=== PATIENT | female | born 1990 | race Caucasian/White ===

== ENCOUNTER → 2020-11-10 09:51 | Outpatient (CLI) | payer OTHER, SELFPAY ==
--- NOTE | ~2020-11-10 | US_ITS ---
EXAMINATION: US OB >= 14 weeks Fetus EXAM DATE: 11/10/2020 10:34 INDICATION: OB anatomy screen . 2nd trimester. TECHNIQUE: Pelvic obstetrical transabdominal sonogram was performed by a technologist. There are mu ltiple grayscale and Doppler images available for interpretation. There are no earlier studies of th is gestation for comparison. FINDINGS: There is a single fetus identified in vertex presentation with a heart rate of 145 beats pe r minute. The placenta is located in the posterior position. There is no sonographic evidence of ret roplacental hemorrhage identified. There is subjectively expected amount of amniotic fluid. Placenta l margin to internal cervical os distance is 3.8 cm. BIOMETRIC DATA: Biparietal diameter (BPD): 3.9 cm ----------------> 17 weeks 6 days. Head circumference (HC): 14.2 cm ----------------> 17 weeks 3 days. Abdominal circumference (AC): 12.5 cm ----------> 18 weeks 1 day. Femur length (FL): 2.3 cm --------------------------> 16 weeks 6 days. These measurements are concordant. HC/AC ratio is 1.13 (The 5th -- 95th percentile range is 1.08-1.28. Estimated weight is 198 g +/- 30 g. This is the 19th percentile when the currently reported cl inical gestation age 18 weeks 0 days, clinical estimated date of delivery (ANIL-OPE) 04/13 is used. Fet al estimated gestational age based on measurements from this exam is 17 weeks 4 days, with an estimat ed date of delivery (ANIL-AUA) 04/16. IMPRESSION: 1. Single fetus in vertex presentation with heart rate 145 beats per minute. 2. Estimated weight of 198 grams, 19th percentile using the currently reported clinical gestat ion age of 18 weeks 0 days, ANIL(OPE) /. 3. Normal anatomic survey. Reviewed, dictated and finalized at location B. IMPRESSION: 1. Single fetus in vertex presentation with heart rate 145 beats per minute. 2. Estimated weight of 198 grams, 19th percentile using the currently re ported clinical gestation age of 18 weeks 0 days, ANIL(OPE) 04/13. 3. Normal anatomic survey.
== END ==
PROVIDERS: Visit Provider Obstetrics & Gynecology
DX: Z36.9 Encounter for antenatal screening, unspecified (principal); Z3A.18 18 weeks gestation of pregnancy
CPT/HCPCS: 76805

== ENCOUNTER 2021-02-18 09:43 | Outpatient (CLI) | payer OTHER, SELFPAY ==
--- NOTE | ~2021-02-18 | US_ITS ---
EXAMINATION: US OB follow up DATE: 02/18/2021 10:23 INDICATION: Size greater than dates during third trimester TECHNIQUE: Real-time ultrasound of the pelvis was performed. The interpreting radiologist was not pre sent for the study. COMPARISON: None. FINDINGS: There is a single living fetus in vertex presentation. The placenta is posterior/fundal. Fe curtis cardiac activity and movement are noted. heart rate is 132 beats per minute (bpm). Th e amniotic fluid index is 15.7 cm which is normal. The following biometric data were obtained: Biparietal diameter (BPD): 8.1 cm; head circumference (HC): 29.8 cm; abdominal circumference (AC): 26 .5 cm; femur length (FL): 5.8 cm. These measurements are concordant. Estimated weight is 1669 g +/- 250 g, which correlates with the 9th percentile when 04/13/2021 i s used as estimated date of delivery. As single measurements, these parameters are each equal to the following estimated gestational ages w ith ranges of +/- 2 standard deviations: BPD: 32 weeks 3 days ( 29 weeks 3 days - 35 weeks 4 days). HC: 33 weeks 0 days ( 30 weeks 0 days - 36 weeks 0 days). AC: 30 weeks 5 days ( 27 weeks 5 days - 33 weeks 4 days). FL: 30 weeks 3 days ( 27 weeks 3 days - 33 weeks 2 days). estimated gestational age based solely on measurements from this exam is 31 weeks 5 days +/- 2 weeks 2 days. IMPRESSION: 1. Single living fetus in vertex presentation. 2. Estimated weight is 1669 g +/- 250 g, which correlates with the 9th percentile when 1 is used as estimated date of delivery. 3. Normal amniotic fluid index. Reviewed, dictated and finalized at location B. IMPRESSION: 1. Single living fetus in vertex presentation. 2. Estimated weight is 1669 g +/- 250 g, which correlates with the 9th pe rcentile when 04/13/2021 is used as estimated date of delivery. 3. Normal amniotic fluid index.
== END 2021-02-18 09:44 ==
LOC: MICIMG 09:44
PROVIDERS: Visit Provider Obstetrics & Gynecology
DX: O36.63X0 Maternal care for excessive fetal growth, third trimester, not applicable or unspecified (principal); Z3A.31 31 weeks gestation of pregnancy
CPT/HCPCS: 76816

== ENCOUNTER 2021-04-12 04:43 | Inpatient (IN) | payer OTHER, SELFPAY ==
[2021-04-12] VITALS (124 sets, daily range): BP systolic 91–152; BP diastolic 53–122; PULSE 68–148; RESP 18; TEMP 36.2–36.9; O2SAT 95–100; BMI 40.3
--- NOTE | 2021-04-12 04:43 | LDADM ---
This patient, Gigi Bowden, was admitted to Labor/Delivery/Recovery 104 on 04/12/21 at 04:43. Plans for labor, pain management and were discussed with patient. Patient/family oriented to hospital policies and general routines including ID bracelet, bed and alarms, visiting hours, pain management, procedures, bathroom and other care routines, personal items, smoking policy, room service/diet and guest tray routines, infant security routines, and visiting hours. Patient/Family are encouraged to report perceived risks to care and to ask questions if they do not understand what they are told or what they should do. See OBIX for further documentation.
[2021-04-12] MEDS: OXYTOCIN 30 UNITS/NS 500 ML 30 UNITS/500 ML BAG IV CONT (05:44)
[2021-04-12] MEDS: LACTATED RINGERS 1,000 ML 125 ML IV CONT ×4 (05:44→12:26)
[2021-04-12] MEDS: AMPICILLIN 2 GM/NS 100 ML 2 GM/100 ML BAG IVPB (05:44)
[2021-04-12 05:45] LABS: Basophils Absolute Auto 0.1 K/mm3 (0.0-0.1); Basophils Percent Auto 0.6 % (0.2-1.2); Eosinophils Absolute Auto 0.4 K/mm3 (0-0.3); Eosinophils Percent Auto 2.9 % (0-4.4); Hematocrit 32.4 % (37.0-47.0); Hemoglobin 10.6 g/dL (12.0-15.0); Immature Granulocyte Absolute 0.07 K/mm3 (0.00-0.031); Immature Granulocyte Percent A 0.6 % (0-0.5); Lymphocytes Absolute Auto 3.53 K/mm3 (0.9-3.2); Lymphocytes Percent Auto 29.7 % (18.3-44.2); Mean Corpuscular HGB Conc 32.7 g/dl (32-36); Mean Corpuscular Hemoglobin 29.3 pg (26-34); Mean Corpuscular Volume 89.5 fl (80-100); Mean Platelet Volume 10.8 fl (7.4-10.4); Monocytes Absolute Auto 0.9 K/mm3 (0.1-0.6); Monocytes Percent Auto 7.6 % (2.6-8.5); Neutrophils Percent Auto 58.6 % (45.5-73.1); Platelet Count Result 316 k/mm3 (150-375); Red Blood Count 3.62 M/mm3 (4.2-5.4); Red Cell Distribution Width 14.4 % (11.5-14.5); White Blood Count 11.9 K/mm3 (4.5-10.0)
--- NOTE | 2021-04-12 07:52 | WPDOBADMIT ---
Obstetrics - Admit Note Admission Note: AROM clear fluid 3-/-2. record reviewed. No pertinent additions to the history and/or any subsequent changes in the physical findings that are not consistent with the expected course of the were found. Additions to the history and/or subsequent changes in the physical findings follow. None.
[2021-04-12 09:14] LABS: Amphetamine Screen Urine Negative (Negative); Barbiturate Screen Urine Negative (Negative); Benzodiazepines Screen Urine Negative (Negative); Cannabinoid Screen Urine Negative (Negative); Cocaine Screen Urine Negative (Negative); Methadone Screen Urine Negative (Negative); Opiate Screen Urine Negative (Negative); Phencyclidine Screen Urine Negative (Negative)
[2021-04-12] MEDS: AMPICILLIN 1 GM/NS 50 ML 1 GM/50 ML BAG IVPB ×2 (09:16→13:02)
[2021-04-12 11:03] LABS: Rapid Plasma Reagin Non-Reactive (NonReactive)
--- NOTE | 2021-04-12 11:46 | WPDANESEPP ---
Anes - Eval Pre Procedure Procedure: LABOR EPIDURAL Date/Time: 04/12/21 11:46 Surgeon: MAXIMILIAN Preop Diagnosis: LABOR PAIN Pre Op Diagnosis: IOL Patient Data Age: 30 Gender: F Height: 1.7 m Weight: 116.8 kg Last Vital Signs Temp 36.4 C 04/12/21 09:30 Pulse 107 H 04/12/21 11:44 Resp 18 04/12/21 05:57 BP 129/66 04/12/21 11:44 Pulse Ox 99 04/12/21 11:44 Allergies Allergy/AdvReac Type Severity Reaction Status Date / Time No Known Allergies Allergy Unknown Verified 01/27/18 15:40 Home Medications Medication Instructions Recorded Confirmed Type PNV cmb#95-ferrous fumarate-FA 1 tablet PO DAILY 03/14/21 04/12/21 History [] Laboratory Tests 04/12/21 04/12/21 04/12/21 05:35 05:35 05:35 WBC 11.9 K/mm3 H K/mm3 (4.5-10.0) RBC 3.62 M/mm3 L M/mm3 (4.2-5.4) Hgb 10.6 g/dL L g/dL (12.0-15.0) Hct 32.4 % L % (37.0-47.0) MCV 89.5 fl fl (80-100) MCH 29.3 pg pg (26-34) MCHC 32.7 g/dl g/dl (32-36) RDW 14.4 % % (11.5-14.5) Plt Count 316 k/mm3 k/mm3 (150-375) MPV 10.8 fl H fl (7.4-10.4) Immature Gran % (Auto) 0.6 % H % (0-0.5) Neut % (Auto) 58.6 % % (45.5-73.1) Lymph % (Auto) 29.7 % % (18.3-44.2) [place] % (Auto) 7.6 % % (2.6-8.5) Eos % (Auto) 2.9 % % (0-4.4) Baso % (Auto) 0.6 % % (0.2-1.2) Lymph # (Auto) 3.53 K/mm3 H K/mm3 (0.9-3.2) [place] # (Auto) 0.9 K/mm3 H K/mm3 (0.1-0.6) Eos # (Auto) 0.4 K/mm3 H K/mm3 (0-0.3) Baso # (Auto) 0.1 K/mm3 K/mm3 (0.0-0.1) Abs Immat Gran (auto) 0.07 K/mm3 H K/mm3 (0.00-0.031) Absolute Neuts (auto) 7.0 K/mm3 H K/mm3 (1.3-6.7) Absolute Nucleated RBC 0.0 K/mm3 K/mm3 (0.0-0.012) Nucleated RBC % 0.0 % % (0.0-0.2) Urine Opiates Screen Urine Methadone Screen Ur Barbiturates Screen Ur Phencyclidine Scrn Ur Amphetamine Screen U Benzodiazepines Scrn Urine Cocaine Screen U Cannabinoids Screen RPR Non-reactive (NonReactive) Blood Type B Positive Antibody Screen Negative 04/12/21 08:22 WBC RBC Hgb Hct MCV MCH MCHC RDW Plt Count MPV Immature Gran % (Auto) Neut % (Auto) Lymph % (Auto) [place] % (Auto) Eos % (Auto) Baso % (Auto) Lymph # (Auto) [place] # (Auto) Eos # (Auto) Baso # (Auto) Abs Immat Gran (auto) Absolute Neuts (auto) Absolute Nucleated RBC Nucleated RBC % Urine Opiates Screen Negative (Negative) Urine Methadone Screen Negative (Negative) Ur Barbiturates Screen Negative (Negative) Ur Phencyclidine Scrn Negative (Negative) Ur Amphetamine Screen Negative (Negative) U Benzodiazepines Scrn Negative (Negative) Urine Cocaine Screen Negative (Negative) U Cannabinoids Screen Negative (Negative) RPR Blood Type Antibody Screen Patient hx anesthesia problems: none Family hx anesthesia problems: none Results Review: All pre-operative results and documents have been reviewed as part of the pre-operative evaluation. [facility] Family History Family History Other No pertinent family history Social History Social History Smoking status: Former smoker Substance use: never Spiritual care concerns: No Exam Day of Procedure 04/12/21 11:46 Patient weight: morbidly obese Heart: tachycardia Lungs: normal air movement Airway: Mallampati scale class II Neurological: alert and oriented
[2021-04-12] MEDS: OXYTOCIN 30 UNITS/NS 500 ML 30 UNITS/500 ML BAG 125 UNITS IV CONT (16:00)
[2021-04-12] MEDS: IBUPROFEN 600 MG TABLET PO (19:40)
[2021-04-13] VITALS (8 sets, daily range): BP systolic 125–142; BP diastolic 69–92; PULSE 77–101; RESP 18; TEMP 36.4–36.7; O2SAT 98–99
[2021-04-13] MEDS: IBUPROFEN 600 MG TABLET PO (04:14)
[2021-04-13 04:26] LABS: Hematocrit 32.5 % (37.0-47.0); Hemoglobin 10.3 g/dL (12.0-15.0)
[2021-04-13] MEDS: MULTIVIT/MIN/PREN/FOL AC/IRON TABLET 1 TAB PO (08:50)
--- NOTE | 2021-04-13 10:43 | PM.OBPNVD ---
OB - PN: Subj Subjective Date/time seen: 04/13/21 10:43 doing well no complaints OB - PN: Obj Data Labs CBC & Chem 7: 04/13/21 04:18 Labs: Laboratory Results - last 24 hr 04/12/21 04/13/21 05:35 04:18 Hgb 10.3 L Hct 32.5 L RPR Non-reactive OB - PN A/P Assessment and Plan (1) (normal spontaneous vaginal delivery): Code(s): O80 - Encounter for full-term uncomplicated delivery Status: Acute Assessment and Plan: continue with pp care Time Spent With Patient Time: Total time spent is greater than 50% in coordination of care (as documented) at patient's floor/unit and/or counseling patient: Exam Narrative: ff below umbilicus
[2021-04-16 08:52] VITALS: BP 134/67; PULSE 97; RESP 20; TEMP 36.9; O2SAT 98
--- NOTE | 2021-05-01 09:58 | PM.OBPRVD ---
OB - Delivery Note Procedure Delivery date: 04/12/21 Procedure: events: Labor Induction Intrapartal events: None Induction method: AROM and per pitocin protocol Delivery monitor: external FHT and external uterine Route of delivery: Laceration Description: Perineal - 2nd Degree Delivery repair: vicryl Quantitative Blood Loss (ml): 110 Anesthesia type: Epidural Disposition: floor [place] Baby Date of : 04/12/21 Time of : 15:07 Weeks of gestation at delivery: 39 Infant gender: Female Weight (pounds): 7 Weight (ounces): 11 presentation: vertex position: Left Occiput Anterior Placenta delivery description: Spontaneous cord vessel description: 3 Vessels score one minute: 9 score five minutes: 9
--- NOTE | 2021-05-01 10:01 | PM.OBDSVD ---
DS: Admitting Diagnosis Discharge Date 04/13/21 Admitting Diagnosis Induction of Labor OB - DS: Summary OB Procedures : None OB Procedures Intrapartum: Spontaneous Vag Delivery OB Procedures: : None Time Spent with Patient Time attestation: Total time spent providing and/or coordinating discharge services: Discharge Plan Discharge Attending physician on discharge: Joshua Aburto Discharging Clinician: Joshua Aburto Patient Disposition: Home, Self-Care Activity: may shower and pelvic rest Diet: regular Discharge Instructions: Education: Mom and Baby Guide Given to: Mother Follow-Up: Call your delivering provider's office for an appointment to be seen in: 4 Weeks Mom and baby should come to the [facility] for the follow-up appointment. Appointment Date/Time: April 16, 2021 at 9:00 am What to expect at your follow-up visit: Physical Assessment Call [phone] if you are unable to keep your appointment time. BREAST CARE: * Wear a snug supportive bra. * For engorgement discomfort: Breast Feeding: * Apply warm moist washcloths * Express milk as needed to relieve engorgement * Wear loose clothing Bottle Feeding: * May apply ice packs * For sore nipples: * Identify correct latch-on * Apply warm moist washcloths before and after nursing * Air dry nipples after nursing * May apply Lansinoh cream to nipples PERINEAL CARE: * Until bleeding stops, use your martinez bottle after urinating * Change your pad frequently throughout the day * You may take sitz baths several times a day (fill your bathtub with warm water and soak for 20 minutes.) Do NOT bathe in the water * No tub baths until seen by your physician - You may shower ACTIVITY: * Rest as much as possible. * Do not exercise or lift anything heavier than your baby (such as laundry or other children.) * Avoid stairs or driving as much as possible. * Do not put anything into the vagina. No douching, tampons, or sexual activity until seen by physician. NOTIFY PHYSICIAN IF YOU HAVE ANY QUESTIONS OR IF ANY OF THE FOLLOWING SYMPTOMS OCCUR: * If your perineum becomes red, swollen, or more painful than what you have experienced in the hospital. * If your vaginal bleeding becomes foul smelling. * If your vaginal bleeding becomes more heavy than a period or if your bleeding changes from pink to bright red. However, you may pass an occasional walnut-sized clot once or twice for the first week . * If you experience a sharp, shooting pain in you calves. * If you discover a hard, reddened area on your breast or if you experience flu-like symptoms. * If you have a fever of 100.4 or greater DIET: * Eat regular, well-balanced meals. * Drink plenty of fluids daily. If , drink to thirst. Patient Instructions: Antibiotic Form Stand Alone Forms: General Discharge Information Follow-up/Referrals: Joshua Aburto MD [Physician] - Discharge Medications: New norethindrone acetate 5 mg tablet 5 mg PO DAILY Qty: 30 RF: 8 Continued PNV cmb#95-ferrous fumarate-FA [] 28 mg iron- 800 mcg Tablet 1 tablet PO DAILY RF: 0 Date of admission: 04/12/21 04:43 Primary Care Provider: PHYSICIAN,CABINET PROFESSIONAL Admitting Provider: Joshua Aburto Attending physician on admission: Joshua Aburto Condition: Stable
== END 2021-04-13 17:20 | disposition home or self-care (01) | DRG 807 ==
LOC: ANHLDR 04:49 → ANHOBPP 19:14
PROVIDERS: Admitting Provider Obstetrics & Gynecology; Visit Provider Obstetrics & Gynecology
DX: O99.214 Obesity complicating childbirth (principal); Z37.0 Single live birth; E66.01 Morbid (severe) obesity due to excess calories; O99.824 Streptococcus B carrier state complicating childbirth; O70.1 Second degree perineal laceration during delivery; Z3A.39 39 weeks gestation of pregnancy
CPT/HCPCS: 36415; 80307; 85014; 85018; 85025; 86592; 86850; 86900; 86901; A9270; J0290; J2590; J2795; J7120

== ENCOUNTER 2024-02-14 21:11 | Emergency (ER) | payer OTHER, SELFPAY ==
[2024-02-14 21:17] VITALS: BP 153/96; PULSE 102; RESP 16; TEMP 36.7; O2SAT 98
--- NOTE | 2024-02-14 23:23 | PC.NURSE ---
eye supplies placed at bedside for edp to use for evaluation.
--- NOTE | 2024-02-15 00:46 | ED.EYEPROB ---
HPI - Eye Problem General Chief complaint: Eye Problems Stated complaint: Possible scratch to R eye Time Seen by Provider: 02/15/24 00:30 Source: patient Mode of arrival: ambulatory Limitations: no limitations History of Present Illness HPI Narrative: This is a 33-year-old female that presents to the emergency department for right eye redness and irritation. Reports she put on her false eyelashes this morning. Is unsure if she may be scratched her eye. Has had irritation and feeling of foreign body. Denies visual changes. Related Data Home Medications Medication Instructions Recorded Confirmed vit no.95-ferrous 1 tablet PO DAILY 03/14/21 04/12/21 fumarate 28 mg-folic acid 800 mcg tablet () Allergies Allergy/AdvReac Type Severity Reaction Status Date / Time No Known Allergies Allergy Unknown Verified 01/27/18 15:40 Review of Systems Review of Systems: CONSTITUTIONAL: Denies fever EYES: Reports redness. Denies visual changes All systems reviewed & are unremarkable except as noted in HPI and below PMFSH Past Medical History Medical History (Updated 02/15/24 @ 00:46 by Caitlin Kingsley PA-C) (normal spontaneous vaginal delivery) Family History Family History Other No pertinent family history Social History Social History Smoking status: Former smoker Substance use: never Spiritual care concerns: No Exam Narrative: GENERAL: Well-appearing, well-nourished, and in no acute distress. HEAD: Normocephalic, atraumatic. EYES: PERRLA and EOMI. Right eye pressure 20, 17 on the left. Conjunctival injection and tearing of the right eye. Positive fluorescein stain uptake with a corneal abrasion noted. Eyelid eversion, no foreign bodies noted. Visual acuity 20/30 left eye, 20/50 right eye EXTREMITIES: Normal range of motion. No edema. SKIN: Warm, dry, no rash. NEURO: No focal deficits. Alert and oriented x3. PSYCH: Normal mood and affect Course Course Emergency Course: Patient agrees with plan of care Vital Signs Vital signs: Vital Signs Temperature 98.1 F 02/14/24 21:17 Pulse Rate 102 H 02/14/24 21:17 Respiratory Rate 16 02/14/24 21:17 Blood Pressure 153/96 H 02/14/24 21:17 Pulse Oximetry 98 02/14/24 21:17 Oxygen Delivery Room Air 02/14/24 21:17 Temperature 98.1 F 02/14/24 21:17 Pulse Rate 102 H 02/14/24 21:17 Respiratory Rate 16 02/14/24 21:17 Blood Pressure 153/96 H 02/14/24 21:17 Pulse Oximetry 98 02/14/24 21:17 Oxygen Delivery Room Air 02/14/24 21:17 MDM - Eye Problem MDM Narrative Medical decision making narrative: Patient presents to the emergency department for right eye irritation. Ongoing since putting on her false eyelashes this morning. Exam consistent with a corneal abrasion. Will be started on topical antibiotics. Instructed to have follow-up with her eye doctor. She was given warnings to return to the ER Differential Diagnosis Differential diagnosis: Likely corneal abrasion, conjunctivitis and subconjunctival hemorrhage Critical Care Time Critical Care Time Critical Care Time: No Discharge Plan Discharge Clinical Impression: Corneal abrasion Qualifiers: Encounter type: initial encounter Laterality: right Qualified Code(s): S05.01XA - Injury of conjunctiva and corneal abrasion without foreign body, right eye, initial encounter Patient Disposition: Home, Self-Care Condition: Stable Instructions: Antibiotic Form, Corneal Abrasion (ED) Additional Instructions: Return to the emergency department if you experience fever, redness and swelling of your eye, visual changes, or any other symptoms that are concerning to you Apply antibiotic ointment as prescribed Follow-up with your eye doctor Prescriptions: New erythromycin 5 mg/gram (0.5 %) ointment 1 randal
[2024-02-15] MEDS: DACRIOSE EYE IRRIGATION 118 ML BOTTLE (01:26)
[2024-02-15] MEDS: FLUORESCEIN SOD 1 MG/STRIP (01:27)
[2024-02-15] MEDS: TETRACAINE HCL 0.5% OPHTH SOLN 4 ML BTL 1 DROP (01:27)
[2024-02-15 02:18] VITALS: BP 117/68; PULSE 68; RESP 16; TEMP 36.6; O2SAT 98
== END 2024-02-15 02:19 | disposition home or self-care (01) ==
PROVIDERS: Emergency Provider Physician Assistant
DX: S05.01XA Injury of conjunctiva and corneal abrasion without foreign body, right eye, initial encounter (principal); Z87.891 Personal history of nicotine dependence; X58.XXXA Exposure to other specified factors, initial encounter
CPT/HCPCS: 99283; A9270

== ENCOUNTER 2024-04-10 08:57 | Emergency (ER) | payer OTHER, SELFPAY ==
[2024-04-10 08:58] VITALS: BP 152/95; PULSE 120; RESP 16; TEMP 36.5; O2SAT 98
[2024-04-10 09:18] VITALS: BP 152/92; PULSE 106; RESP 18; O2SAT 97
--- NOTE | 2024-04-10 10:54 | ED.GENADULT ---
HPI - General Adult General Chief complaint: Skin/Abscess/Foreign Body Stated complaint: spots on my leg that I thought were spider bites Time Seen by Provider: 04/10/24 09:58 History of Present Illness HPI narrative: [age] old female presenting to the emergency department for evaluation for lesions to bilateral lower legs. Patient states they initially started as white dots associated with the hair follicles, a then turned into larger areas erythema. Patient states these started last week. Patient does have some resolving lesions but also his new lesions pain Patient denies any prior history of MRSA exposure, patient works at an office job. Related Data Home Medications Medication Instructions Recorded Confirmed vit no.95-ferrous 1 tablet PO DAILY 03/14/21 04/12/21 fumarate 28 mg-folic acid 800 mcg tablet () Allergies Allergy/AdvReac Type Severity Reaction Status Date / Time No Known Allergies Allergy Unknown Verified 04/10/24 08:58 Review of Systems Review of Systems: All systems reviewed & are unremarkable except as noted in HPI and below PMFSH Past Medical History Medical History (Updated 04/10/24 @ 10:58 by Wild Barrera MD) (normal spontaneous vaginal delivery) Family History Family History Other No pertinent family history Social History Social History Smoking status: Former smoker Substance use: never Spiritual care concerns: No Exam Narrative: APPEARANCE: Well appearing, no pain, no distress, well-nourished. HEAD: normocephalic, atraumatic. EYES: PERRLA/EOMI, conjunctivae clear. NOSE: Normal no drainage EARS:TMS clear with good light reflex. THROAT: Pharynx clear, no exudate. NECK: Supple. No adenopathy, no masses. RESPIRATORY: Airway patent, respirations nonlabored. Clear to auscultation bilaterally, no rales, rhonchi, wheezing. CARDIOVASCULAR: Regular rate and rhythm without murmurs rubs or gallops. ABDOMINAL: Soft, nontender, nondistended, normal bowel sounds MUSCULOSKELETAL: Moves all extremities. Strength/ROM intact, No edema, No calf tenderness. NEURO: Alert. Cranial nerves II through XII intact. Good gait. Good coordination SKIN: 2 areas of resolving folliculitis but possible cellulitis left leg and to new areas the right leg. Course Vital Signs Vital signs: Vital Signs Temperature 97.7 F 04/10/24 08:58 Pulse Rate 120 H 04/10/24 08:58 Respiratory Rate 16 04/10/24 08:58 Blood Pressure 152/95 H 04/10/24 08:58 Pulse Oximetry 98 04/10/24 08:58 Oxygen Delivery Room Air 04/10/24 08:58 Temperature 97.7 F 04/10/24 08:58 Pulse Rate 90 04/10/24 11:08 Respiratory Rate 20 04/10/24 11:08 Blood Pressure 139/79 04/10/24 11:08 Pulse Oximetry 100 04/10/24 11:08 Oxygen Delivery Room Air 04/10/24 09:18 Medical Decision Making MDM Narrative Medical decision making narrative: [age] old female presented emergency department for evaluation for wounds on her legs. Wounds do consistent with folliculitis and cellulitis. Patient is being started on doxycycline the emergency department. Patient was advised to have follow-up with her primary care physician for a wound check. Differential Diagnosis Differential Diagnosis: Cellulitis, MRSA, impetigo, follicular Vital Signs Vital Signs: Vital Signs Temperature 97.7 F 04/10/24 08:58 Pulse Rate 120 H 04/10/24 08:58 Respiratory Rate 16 04/10/24 08:58 Blood Pressure 152/95 H 04/10/24 08:58 Pulse Oximetry 98 04/10/24 08:58 Oxygen Delivery Room Air 04/10/24 08:58 Temperature 97.7 F 04/10/24 08:58 Pulse Rate 90 04/10/24 11:08 Respiratory Rate 20 04/10/24 11:08 Blood Pressure 139/79 04/10/24 11:08 Pulse Oximetry 100 04/10/24 11:08 Oxygen Delivery Room Air 04/10/24 09:18 Discharge Plan Di
[2024-04-10] MEDS: DOXYCYCLINE HYCLATE 100 MG TABLET PO (11:05)
[2024-04-10 11:08] VITALS: BP 139/79; PULSE 90; RESP 20; O2SAT 100
== END 2024-04-10 11:09 | disposition home or self-care (01) ==
PROVIDERS: Emergency Provider Emergency Medicine
DX: L03.116 Cellulitis of left lower limb (principal); L03.115 Cellulitis of right lower limb; L73.9 Follicular disorder, unspecified; Z87.891 Personal history of nicotine dependence
CPT/HCPCS: 99283; A9270

== ENCOUNTER 2024-08-30 18:08 | Emergency (ER) | payer OTHER, SELFPAY ==
[2024-08-30] VITALS (8 sets, daily range): BP systolic 109–156; BP diastolic 82–141; PULSE 107–131; RESP 17–30; TEMP 37.3; O2SAT 96–100
--- NOTE | ~2024-08-30 | CT_ITS ---
EXAMINATION: CTA chest PE protocol DATE: 08/30/2024 21:50 INDICATION: ddimer, chest wall pain TECHNIQUE: Computed tomography angiography (CTA) of the chest was performed with 100 mL Omnipaque-350 intravenous contrast timed to evaluate the pulmonary arteries. Coronal maximum intensity projection 3D-reconstructions were created by the technologist. The dose-length product (DLP) was 927.89 mGy-cm. Automated exposure control and iterative reconstruction technique were employed. COMPARISON: None. FINDINGS: Lung parenchyma and airways: Motion artifact. Patent airways. Lingular scar/atelectasis.. Pleura: Left hemidiaphragm elevation.. Thoracic inlet, axillae and chest wall: Unremarkable. Thoracic aorta: No significant dilation. No dissection. Mediastinum: Normal. Heart and pericardium: Normal. Coronary artery calcifications: Absent. Upper abdomen: No significant finding. Bones: No acute osseous finding. Pulmonary arteries: Study quality: Considerable cardiac motion artifact. Respiratory motion artifact which persisted in repeated imaging attempt. No central pulmonary emboli detected. Segmental and subs egmental pulmonary arteries not adequately visualized. IMPRESSION: Motion limited examination. No acute central pulmonary embolus. Segmental and subsegmental pulmonary arteries poorly visualized. No acute process detected in the chest. Left hemidiaphragm elevation. Consider referral for outpatient fluoroscopic evaluation (sniff test). Reviewed, dictated and finalized at location [facility]. [facility] IMPRESSION: Motion limited examination. No acute central pulmonary embolus. Segmental and s ubsegmental pulmonary arteries poorly visualized. No acute process detected in the chest. Left hemidiaphragm elevation. Consider referral for outpatient fluoroscopic syed luation (sniff test).
[2024-08-30] MEDS: SODIUM CHLORIDE 0.9% IV 1,000 ML 999 ML IV CONT (19:40)
--- NOTE | 2024-08-30 19:40 | ED_ITS ---
HPI - General Adult General Chief complaint: Shortness of Breath/Dyspnea Stated complaint: SOB, back pain with inspiration Time Seen by Provider: 08/30/24 19:03 History of Present Illness HPI narrative: 33-year-old female present to the emergency department for evaluation for cough congestion with increased shortness of breath. Patient states her symptoms have been ongoing for last 3 days. Patient denies any prior history of PE or DVT. Patient denies any chest pain. Patient is nonsmoker does not vape. Related Data Home Medications ?Medication ?Instructions ?Recorded ?Confirmed ?Last Taken ?Type vit no.95-ferrous 1 tablet PO DAILY 03/14/21 04/12/21 1 Day Ago History fumarate 28 mg-folic acid 800 mcg ~04/11/21 tablet () Allergies Allergy/AdvReac Type Severity Reaction Status Date / Time No Known Allergies Allergy Unknown Verified 08/30/24 18:08 Review of Systems 2 Review of Systems: All systems reviewed & are unremarkable except as noted in HPI and below PMFSH Past Medical History Medical History (Updated 08/31/24 @ 00:00 by Robby Ceja) (normal spontaneous vaginal delivery) Family History Family History Other No pertinent family history Social History Social History Smoking status: Former smoker Substance use: never Spiritual care concerns: No Exam 2 Narrative: APPEARANCE: Well appearing, no pain, no distress, well-nourished. HEAD: normocephalic, atraumatic. EYES: PERRLA/EOMI, conjunctivae clear. NOSE: Normal no drainage EARS:TMS clear with good light reflex. THROAT: Pharynx clear, no exudate. NECK: Supple. No adenopathy, no masses. RESPIRATORY: Airway patent, respirations nonlabored. Clear to auscultation bilaterally, no rales, rhonchi, wheezing. CARDIOVASCULAR: Regular rate and rhythm without murmurs rubs or gallops. ABDOMINAL: Soft, nontender, nondistended, normal bowel sounds MUSCULOSKELETAL: Moves all extremities. Strength/ROM intact, No edema, No calf tenderness. NEURO: Alert. Cranial nerves II through XII intact. Good gait. Good coordination SKIN: Warm, dry. Normal Color PSYCHIATRIC: Normal affect/mood. Course Vital Signs Vital signs: Vital Signs Temperature 99.2 F 08/30/24 18:11 Pulse Rate 131 H 08/30/24 18:11 Respiratory Rate 20 08/30/24 18:11 Blood Pressure 152/97 H 08/30/24 18:11 Pulse Oximetry 96 08/30/24 18:11 Oxygen Delivery Room Air 08/30/24 18:11 Temperature 99.2 F 08/30/24 18:11 Pulse Rate 121 H 08/30/24 21:02 Respiratory Rate 29 H 08/30/24 21:02 Blood Pressure 156/82 H 08/30/24 21:02 Pulse Oximetry 100 08/30/24 21:02 Oxygen Delivery Room Air 08/30/24 18:11 Medical Decision Making MDM Narrative Medical decision making narrative: [age] old female presented emergency department for evaluation for shortness of breath. Patient was wheezing on arrival. Wheeze was improved with breathing treatment. Patient's heart rate did improve with IV fluids but then increased again after the breathing treatment. At time of re-evaluation patient states she does feel improved. Differential Diagnosis Differential Diagnosis: COVID, RSV, influenza, pneumonia Vital Signs Vital Signs: Vital Signs Temperature 99.2 F 08/30/24 18:11 Pulse Rate 131 H 08/30/24 18:11 Respiratory Rate 20 08/30/24 18:11 Blood Pressure 152/97 H 08/30/24 18:11 Pulse Oximetry 96 08/30/24 18:11 Oxygen Delivery Room Air 08/30/24 18:11 Temperature 99.2 F 08/30/24 18:11 Pulse Rate 121 H 08/30/24 21:02 Respiratory Rate 29 H 08/30/24 21:02 Blood Pressure 156/82 H 08/30/24 21:02 Pulse Oximetry 100 08/30/24 21:02 Oxygen Delivery Room Air 08/30/24 18:11 Lab Data 08/30/24 19:31 08/30/24 19:31 Labs: Lab Results 08/30/24 08/30/24 08/30/24 Range/Units 19:31 19:34 20:56 WBC 12.5 H (4.5-10.0) K/mm3 RBC 4.23 (4.2-5.4) M/mm3 Hgb 12.6 (12.0-15.0) g/dL Hct 38.8 (37.0-47.0) % MCV 91.7 (80-100) fl MCH 29.8 (26-34) pg MCHC 32.5 (32-36) g/dl RDW 14.1 (11.5-14.5) % Plt Count 276 (150-375) k/mm3 MPV 9.9 (7.4-10.4) fl Immature Gran % (Auto) 0.2 (0-0.5) % Neut % (Auto) 71.4 (45.5-73.1) % Lymph % (Auto) 17.7 L (18.3-44.2) % [place] % (Auto) 6.2 (2.6-8.5) % Eos % (Auto) 4.0 (0-4.4) % Baso % (Auto) 0.5 (0.2-1.2) % Lymph # (Auto) 2.22 (0.9-3.2) K/mm3 [place] # (Auto) 0.8 H (0.1-0.6) K/mm3 Eos # (Auto) 0.5 H (0-0.3) K/mm3 Baso # (Auto) 0.1 (0.0-0.1) K/mm3 Abs Immat Gran (auto) 0.02 (0.00-0.031) K/mm3 Absolute Neuts (auto) 9.0 H (1.3-6.7) K/mm3 Absolute Nucleated RBC 0.000 (0.0-0.012) K/mm3 Nucleated RBC % 0.0 (0.0-0.2) % PT 13.3 (11.1-14.7) Seconds INR 1.0 APTT 25.0 (22.3-36.8) Seconds D-Dimer 0.78 H (<0.48) ug/mL Sodium 137 (137-145) mmol/L Potassium 3.8 (3.4-5.0) mmol/L Chloride 104 (98-107) mmol/L Carbon Dioxide 25 (22-30) mmol/L Anion Gap 8 (4-12) mmol/L BUN 9 (7-17) mg/dL Creatinine 0.58 L (0.7-1.0) mg/dL Estim Creat Clear Calc 154 ml/min Estimated GFR > 60 (59 - ) Glucose 100 (65-110) mg/dL Calcium 8.9 (8.4-10.2) mg/dL Total Bilirubin 0.6 (0.2-1.3) mg/dL AST 23 (14-36) U/L ALT 24 (6-35) U/L Alkaline Phosphatase 59 (38-126) U/L Total Protein 7.0 (6.3-8.2) g/dL Albumin 4.2 (3.5-5.1) g/dL POC Urine HCG, Qual Negative (Negative) Influenza A (RT-PCR) Negative (Negative) Influenza B (RT-PCR) Negative (Negative) RSV (RT-PCR) Negative (Negative) SARS-CoV-2 RNA (RT-PCR) Negative (Negative) Discharge Plan Discharge Clinical Impression: Acute viral syndrome Patient Disposition: Home, Self-Care Condition: Stable Instructions: Antibiotic Form Additional Instructions: Ureteral inhaler for shortness of breath. Tessalon Perles for cough. Tylenol and ibuprofen for fever body aches. Have close follow-up with your primary care physician. Patient Language: Norwegian Prescriptions: New benzonatate 100 mg capsule 100 mg PO TID PRN (Reason: cough) Qty: 14 0RF albuterol sulfate 90 mcg/actuation HFA aerosol inhaler 1 puff inhalation QID Qty: 6.7 0RF No Action PNV cmb#95-ferrous fumarate-FA [] 28 mg iron- 800 mcg Tablet 1 tablet PO DAILY norethindrone acetate 5 mg tablet 5 mg PO DAILY Qty: 30 8RF doxycycline monohydrate 100 mg capsule 100 mg PO BID 10 Days Qty: 20 0RF erythromycin 5 mg/gram (0.5 %) ointment 1 applic RIGHT EYE Q6H 5 Days Qty: 3.5 0RF Follow-up/Referrals: PHYSICIAN,DIRECTOR TRANSLATIONAL [Primary Care Provider] -
[2024-08-30 19:49] LABS: Basophils Absolute Auto 0.1 K/mm3 (0.0-0.1); Basophils Percent Auto 0.5 % (0.2-1.2); Eosinophils Absolute Auto 0.5 K/mm3 (0-0.3); Hematocrit 38.8 % (37.0-47.0); Hemoglobin 12.6 g/dL (12.0-15.0); Immature Granulocyte Absolute 0.02 K/mm3 (0.00-0.031); Immature Granulocyte Percent A 0.2 % (0-0.5); Lymphocytes Absolute Auto 2.22 K/mm3 (0.9-3.2); Lymphocytes Percent Auto 17.7 % (18.3-44.2); Mean Corpuscular HGB Conc 32.5 g/dl (32-36); Mean Corpuscular Hemoglobin 29.8 pg (26-34); Mean Corpuscular Volume 91.7 fl (80-100); Mean Platelet Volume 9.9 fl (7.4-10.4); Monocytes Absolute Auto 0.8 K/mm3 (0.1-0.6); Monocytes Percent Auto 6.2 % (2.6-8.5); Neutrophils Percent Auto 71.4 % (45.5-73.1); Platelet Count Result 276 k/mm3 (150-375); Red Blood Count 4.23 M/mm3 (4.2-5.4); Red Cell Distribution Width 14.1 % (11.5-14.5); White Blood Count 12.5 K/mm3 (4.5-10.0)
[2024-08-30 20:00] LABS: Alanine Aminotransferase 24 U/L (6-35); Albumin Level 4.2 g/dL (3.5-5.1); Alkaline Phosphatase 59 U/L (38-126); Anion Gap 8 mmol/L (4-12); Aspartate Amino Transferase 23 U/L (14-36); Bilirubin,Total 0.6 mg/dL (0.2-1.3); Blood Urea Nitrogen 9 mg/dL (7-17); Calcium 8.9 mg/dL (8.4-10.2); Carbon Dioxide 25 mmol/L (22-30); Chloride 104 mmol/L (98-107); Estimated CRCL calculation 154 ml/min; Estimated Glomerular Filt Rate > 60; Glucose 100 mg/dL (65-110); Potassium 3.8 mmol/L (3.4-5.0); Sodium 137 mmol/L (137-145)
[2024-08-30 20:15] LABS: Prothrombin Time 13.3 Seconds (11.1-14.7)
[2024-08-30 20:20] LABS: D Dimer 0.78 ug/mL (<0.48)
[2024-08-30 20:27] LABS: Influenza A QL RT-PCR Negative (Negative); Influenza B QL RT-PCR Negative (Negative); RSV RNA, RT-PCR Negative (Negative); SARS-CoV-2 RNA PCR Negative (Negative)
[2024-08-30] MEDS: ALBUTEROL SULFATE NEB 2.5 MG/3 ML INH INHALATION (20:48)
[2024-08-30 20:58] LABS: BEDSIDEPREGUCG Negative (Negative)
== END 2024-08-30 22:44 | disposition home or self-care (01) ==
PROVIDERS: Emergency Provider Emergency Medicine
DX: B34.9 Viral infection, unspecified (principal); Z20.822 Contact with and (suspected) exposure to COVID-19; Z87.891 Personal history of nicotine dependence
CPT/HCPCS: 36415; 71275; 80053; 81025; 85025; 85380; 85610; 85730; 87637; 94640; 96360; 99284; J7030; Q9967